=== PATIENT | male | born 1985 | race Caucasian/White ===

== ENCOUNTER → 2018-12-14 | Outpatient (CLI) | payer OTHER ==
--- NOTE | 2018-12-14 13:53 | US ---
EXAMINATION TYPE: US groin LT DATE OF EXAM: 12/14/2018 COMPARISON: NONE CLINICAL HISTORY: K40.90 Unilateral inguinal hernia, without. Left groin pain. TECHNIQUE/FINDINGS: Targeted ultrasound was performed of the left groin in this patient with left yamilet in pain. Within the left groin there are multiple lymph nodes seen. The largest measuring 2.2 x 0.6 6 x 1.5 cm. These are not pathologically enlarged. No hernia is seen sonographically. IMPRESSION: Nonenlarged lymph nodes are present within the left groin. No hernia is identified sonog raphically.
== END | disposition home or self-care (01) ==
LOC: RADUSWWP 12:52
PROVIDERS: ATTEND Family Medicine
DX: K40.90 Unilateral inguinal hernia, without obstruction or gangrene, not specified as recurrent (principal)

== ENCOUNTER 2021-09-15 16:51 | Emergency (ER) | payer OTHER ==
[2021-09-15 17:43] VITALS: BP 130/84; PULSE 66; RESP 22; TEMP 100.6
--- NOTE | 2021-09-15 19:42 | XR ---
EXAMINATION TYPE: XR chest 2V DATE OF EXAM: 09/15/2021 7:27 PM COMPARISON: None TECHNIQUE: XR chest 2V Frontal and lateral views of the chest. CLINICAL INDICATION:Male, 36 years old with history of Cough; FINDINGS: Lungs/Pleura: There is no evidence of pleural effusion, focal consolidation, or pneumothorax. Pulmonary vascularity: Unremarkable. Heart/mediastinum: Cardiomediastinal silhouette is unremarkable. Musculoskeletal: No acute osseous pathology. IMPRESSION: No acute cardiopulmonary disease/process.
[2021-09-15] MEDS ORDERED: OSELTAMIVIR 75 MG CAP PO STA (20:00)
--- NOTE | 2021-09-15 20:03 | ED ---
Fever HPI - General Chief Complaint: Fever Stated Complaint: Fever Time Seen by Provider: 09/15/21 19:50 Source: patient, RN notes reviewed Mode of arrival: ambulatory Limitations: no limitations - History of Present Illness Initial Comments: This is a pleasant 32-year-old male presents from his back complaining of fever, cough, body aches, runny nose, and some sneezing. Patient states symptoms began going on for about 36 hours. Patient denies any significant past medical history. His has been exposed to his daughter who has similar symptoms. no changes in vision or hearing, no sore throat or difficulty with speech, no neck pain, no chest pain or shortness of breath, no abdominal pain, no nausea or vomiting, no changes in urination or bowel movements, no numbness or tingling, no extremity pain, no skin rashes or lesions. MD Complaint: fever - Related Data Previous Rx's Medication Instructions Recorded Acetaminophen [Tylenol] 500 mg PO Q4-6H PRN #24 tab 09/15/21 Ibuprofen [Motrin Ib] 400 mg PO Q8H PRN #50 tab 09/15/21 Oseltamivir [Tamiflu] 75 mg PO Q12HR #9 cap 09/15/21 Allergies Allergy/AdvReac Type Severity Reaction Status Date / Time Penicillins Allergy Rash/Hives Verified 09/15/21 17:43 Review of Systems ROS Statement: Those systems with pertinent positive or pertinent negative responses have been documented in the HPI. ROS Other: All systems not noted in ROS Statement are negative. Past Medical History Past Medical History: No Reported History History of Any Multi-Drug Resistant Organisms: None Reported Past Surgical History: No Surgical Hx Reported Past Psychological History: No Psychological Hx Reported Smoking Status: Current every day smoker Past Alcohol Use History: Occasional Past Drug Use History: None Reported General Exam - General Exam Comments Initial Comments: Patient noted to be febrile at 100.8. Appears to be well otherwise. Does not appear to be ill or toxic. Vital signs reviewed Limitations: no limitations General appearance: alert, in no apparent distress Head exam: Present: atraumatic, normocephalic, normal inspection Eye exam: Present: normal appearance, PERRL, EOMI. Absent: scleral icterus, conjunctival injection, periorbital swelling ENT exam: Present: normal exam, normal oropharynx, mucous membranes moist, TM's normal bilaterally, normal external ear exam. Absent: mucous membranes dry Neck exam: Present: normal inspection, full ROM. Absent: tenderness, meningismus, lymphadenopathy Respiratory exam: Present: normal lung sounds bilaterally. Absent: respiratory distress, wheezes, rales, rhonchi, stridor Cardiovascular Exam: Present: regular rate, normal rhythm, normal heart sounds. Absent: systolic murmur, diastolic murmur, rubs, gallop, clicks GI/Abdominal exam: Present: soft, normal bowel sounds. Absent: distended, tenderness, guarding, rebound, rigid Extremities exam: Present: normal inspection, full ROM, normal capillary refill. Absent: tenderness, pedal edema, joint swelling, calf tenderness Back exam: Present: normal inspection Neurological exam: Present: alert, oriented X3, CN II-XII intact Psychiatric exam: Present: normal affect, normal mood Skin exam: Present: warm, dry, intact, normal color. Absent: rash Course Vital Signs 09/15/21 17:41 Temperature 100.6 F H Pulse Rate 66 Respiratory 22 Rate Blood Pressure 130/84 O2 Sat by Pulse 98 Oximetry Medical Decision Making - Medical Decision Making Patient, positive for influenza A which fits the clinical picture. Patient in no acute distress. Does not appear to be toxic. Patient symptomology started within the last 36 hours. Patient does meet criteria for Tamiflu. We'll treat accordingly. We'll also use antipyretics. Work note given. Disease course discussed. Patient voiced understanding. All questions answered. Patient was told to return to the ER for any signs or symptoms worsen. Told to return immediately if any other problems arise. All questions answered. Treatment plan discussed. Patient in agreement Every effort has been made to ensure accuracy of this dictation. However, due to the limitations of electronic medical records and dictation devices, errors in charting still occur. Chute Worker Dr. Parker - Lab Data Lab Results 09/15/21 09/15/21 Range/Units 17:46 17:46 Coronavirus (PCR) Not Detected (Not Detectd) Influenza Type A RNA Detected H (Not Detectd) Influenza Type B (PCR) Not Detected (Not Detectd) - Radiology Data Radiology results: report reviewed, image reviewed Disposition Clinical Impression: Influenza A, Olga's gangrene Disposition: HOME SELF-CARE Condition: Good Instructions (If sedation given, give patient instructions): Fever in Adults (ED) Additional Instructions: Alternate acetaminophen and ibuprofen every 3-4 hours for fever control. Take the Tamiflu as directed. Follow-up with your regular physician as directed. Return to the ER immediately if any symptoms worsen, new symptoms arise, or any other problems develop. Prescriptions: Ibuprofen [Motrin Ib] 400 mg PO Q8H PRN #50 tab PRN Reason: Pain Oseltamivir [Tamiflu] 75 mg PO Q12HR #9 cap Acetaminophen [Tylenol] 500 mg PO Q4-6H PRN #24 tab PRN Reason: Pain Is patient prescribed a controlled substance at d/c from ED?: No Referrals: Arnie Quesada MD [Primary Care Provider] - 09/22/21
== END 2021-09-15 20:16 | disposition home or self-care (01) ==
LOC: EC 16:51
DX: N49.3 Fournier gangrene (principal); J10.1 Influenza due to other identified influenza virus with other respiratory manifestations; F17.200 Nicotine dependence, unspecified, uncomplicated; Z20.822 Contact with and (suspected) exposure to COVID-19; Z88.0 Allergy status to penicillin
CPT/HCPCS: 71046; 87502; 87635